=== PATIENT | female | born 1985 | race Caucasian/White ===

== ENCOUNTER 2016-07-21 18:31 | Emergency (ER) | payer BC, OTHER | END 2016-07-21 20:10 | disposition left against medical advice (07) | LOC: ER1 18:31 | DX: Z53.21 Procedure and treatment not carried out due to patient leaving prior to being seen by health care provider (principal) ==

== ENCOUNTER 2016-07-25 15:04 | Emergency (ER) | payer BC, OTHER ==
[2016-07-25 17:44] LABS: HEMOGLOBIN 14.1 gm/dl (12.3-15.3); RED BLOOD COUNT 4.56 M/UL (4.00-5.10)
[2016-07-25 17:54] LABS: BUN/CREATININE RATIO 17 (0-10)
== END 2016-07-25 19:55 | disposition home or self-care (01) ==
LOC: ER1 15:04
PROVIDERS: Emergency Medicine
DX: M79.662 Pain in left lower leg (principal); M79.652 Pain in left thigh; J45.909 Unspecified asthma, uncomplicated
CPT/HCPCS: 36415; 80053; 85025; 93925; 93971; 99284

== ENCOUNTER → 2016-08-17 | Outpatient (CLI) | payer BC, OTHER | LOC: NM 09:30 | DX: M25.571 Pain in right ankle and joints of right foot (principal); R60.0 Localized edema; M25.871 Other specified joint disorders, right ankle and foot | CPT/HCPCS: 78315; A9503 ==

== ENCOUNTER → 2016-10-01 | Outpatient (CLI) | payer BC, OTHER | LOC: RAD 14:26 | DX: R06.00 Dyspnea, unspecified (principal) | CPT/HCPCS: 71020 ==

== ENCOUNTER 2020-09-23 23:57 | Emergency (ER) | payer BC, OTHER ==
[~2020-09-23 23:57] MED LIST: NORCO 5-325 TA1 EACH PO
[2020-09-24 01:09] LABS: HEMOGLOBIN 14.3 gm/dl (12.3-15.3); RED BLOOD COUNT 4.48 M/UL (4.00-5.10); WHITE BLOOD COUNT 11.8 K/UL (4.5-11.0)
[2020-09-24 01:23] LABS: BUN/CREATININE RATIO 12 (0-10)
== END 2020-09-24 02:44 | disposition home or self-care (01) ==
LOC: ER1 23:57
PROVIDERS: Emergency Medicine
DX: R07.9 Chest pain, unspecified (principal); J45.909 Unspecified asthma, uncomplicated
CPT/HCPCS: 71045; 80053; 82550; 82553; 83874; 84484; 85025; 93005; 96374; 99285; J2060

== ENCOUNTER 2021-06-24 21:24 | Emergency (ER) | payer BC, OTHER ==
[2021-06-24 22:19] LABS: HEMOGLOBIN 13.7 gm/dl (12.3-15.3); RED BLOOD COUNT 4.35 M/UL (4.00-5.10); WHITE BLOOD COUNT 12.6 K/UL (4.5-11.0)
[2021-06-24 22:45] LABS: BUN/CREATININE RATIO 12 (0-10)
== END 2021-06-25 00:21 | disposition left against medical advice (07) ==
LOC: ER1 21:24
PROVIDERS: Physician Assistant; Preventive Medicine Occupational Medicine
DX: R00.0 Tachycardia, unspecified (principal); F17.290 Nicotine dependence, other tobacco product, uncomplicated; Z88.8 Allergy status to other drugs, medicaments and biological substances
CPT/HCPCS: 80048; 80307; 82550; 82553; 83874; 84439; 84443; 84484; 85025; 93005; 99283

== ENCOUNTER 2021-09-17 20:41 | Emergency (ER) | payer BC, OTHER ==
[2021-09-17 21:25] LABS: RED BLOOD COUNT 4.22 M/UL (4.00-5.10); WHITE BLOOD COUNT 13.7 K/UL (4.5-11.0)
[2021-09-17 22:01] LABS: BUN/CREATININE RATIO 19 (0-10)
== END 2021-09-17 23:15 | disposition home or self-care (01) ==
LOC: ER1 20:41
DX: R07.89 Other chest pain (principal)
CPT/HCPCS: 71045; 80053; 82550; 82553; 84484; 85025; 93005; 99285

== ENCOUNTER 2021-10-01 20:46 | Emergency (ER) | payer BC, OTHER ==
[2021-10-01 21:31] LABS: HEMOGLOBIN 14.8 gm/dl (12.3-15.3); RED BLOOD COUNT 4.71 M/UL (4.00-5.10)
[2021-10-01 22:27] LABS: BUN/CREATININE RATIO 17 (0-10)
== END 2021-10-01 22:42 | disposition home or self-care (01) ==
LOC: ER1 20:46
PROVIDERS: Physician Assistant
DX: F41.9 Anxiety disorder, unspecified (principal); R06.02 Shortness of breath; J45.909 Unspecified asthma, uncomplicated; F17.290 Nicotine dependence, other tobacco product, uncomplicated
CPT/HCPCS: 71045; 80053; 82550; 82553; 84439; 84443; 84484; 85025; 93005; 99285

== ENCOUNTER 2021-10-28 14:02 | Emergency (ER) | payer BC, OTHER ==
[2021-10-28 14:33] LABS: HEMOGLOBIN 14.1 gm/dl (12.3-15.3); RED BLOOD COUNT 4.57 M/UL (4.00-5.10); WHITE BLOOD COUNT 12.1 K/UL (4.5-11.0)
[2021-10-28 15:00] LABS: BUN/CREATININE RATIO 14 (0-10)
== END 2021-10-28 16:13 | disposition home or self-care (01) ==
LOC: ER1 14:02
PROVIDERS: Physician Assistant
DX: R00.2 Palpitations (principal); J45.909 Unspecified asthma, uncomplicated
CPT/HCPCS: 71045; 80053; 82550; 82553; 84439; 84443; 84484; 85025; 93005; 99285